=== PATIENT | female | born 1980 | race Caucasian/White ===

== ENCOUNTER → 2019-10-25 07:30 | Outpatient (BNVA) | payer MEDICAID, SELFPAY | PROVIDERS: Family Provider Psychiatry & Neurology Psychiatry; Visit Provider Psychiatry & Neurology Psychiatry | DX: F71 Moderate intellectual disabilities (principal); F42.4 Excoriation (skin-picking) disorder; F42.9 Obsessive-compulsive disorder, unspecified; F33.42 Major depressive disorder, recurrent, in full remission; F33.2 Major depressive disorder, recurrent severe without psychotic features | CPT/HCPCS: 99213 ==

== ENCOUNTER → 2020-04-08 07:58 | Outpatient (BNVA) | payer MEDICAID, SELFPAY | PROVIDERS: Family Provider Psychiatry & Neurology Psychiatry; Visit Provider Psychiatry & Neurology Psychiatry | DX: F33.42 Major depressive disorder, recurrent, in full remission (principal); F42.9 Obsessive-compulsive disorder, unspecified; F42.4 Excoriation (skin-picking) disorder; F71 Moderate intellectual disabilities | CPT/HCPCS: 99213 ==

== ENCOUNTER → 2020-07-29 07:53 | Outpatient (BNVA) | payer MEDICAID, SELFPAY | PROVIDERS: Family Provider Psychiatry & Neurology Psychiatry; Visit Provider Psychiatry & Neurology Psychiatry | DX: F33.42 Major depressive disorder, recurrent, in full remission (principal); F42.9 Obsessive-compulsive disorder, unspecified; F42.4 Excoriation (skin-picking) disorder; F71 Moderate intellectual disabilities | CPT/HCPCS: 99214 ==

== ENCOUNTER → 2020-11-25 07:52 | Outpatient (BNVA) | payer MEDICAID, SELFPAY | PROVIDERS: Family Provider Psychiatry & Neurology Psychiatry; Visit Provider Psychiatry & Neurology Psychiatry | DX: F33.42 Major depressive disorder, recurrent, in full remission (principal); F42.9 Obsessive-compulsive disorder, unspecified; F42.4 Excoriation (skin-picking) disorder; F71 Moderate intellectual disabilities | CPT/HCPCS: 99214 ==

== ENCOUNTER → 2021-04-05 09:58 | Outpatient (BNVA) | payer MEDICAID, SELFPAY | PROVIDERS: Family Provider Psychiatry & Neurology Psychiatry; Visit Provider Psychiatry & Neurology Psychiatry | DX: F42.9 Obsessive-compulsive disorder, unspecified (principal); F33.42 Major depressive disorder, recurrent, in full remission; F42.4 Excoriation (skin-picking) disorder; F71 Moderate intellectual disabilities; Z79.899 Other long term (current) drug therapy; R25.1 Tremor, unspecified | CPT/HCPCS: 99215 ==

== ENCOUNTER → 2021-07-29 07:07 | Outpatient (BNVA) | payer MEDICAID, SELFPAY | PROVIDERS: Family Provider Psychiatry & Neurology Psychiatry; Visit Provider Psychiatry & Neurology Psychiatry | DX: F33.42 Major depressive disorder, recurrent, in full remission (principal); F71 Moderate intellectual disabilities; F42.9 Obsessive-compulsive disorder, unspecified; F42.4 Excoriation (skin-picking) disorder; R25.1 Tremor, unspecified | CPT/HCPCS: 99213 ==

== ENCOUNTER → 2021-10-21 07:23 | Outpatient (BNVA) | payer MEDICAID, SELFPAY | PROVIDERS: Family Provider Psychiatry & Neurology Psychiatry; Visit Provider Psychiatry & Neurology Psychiatry | DX: F42.9 Obsessive-compulsive disorder, unspecified (principal); F33.42 Major depressive disorder, recurrent, in full remission; F71 Moderate intellectual disabilities; F42.4 Excoriation (skin-picking) disorder; Z79.899 Other long term (current) drug therapy; R25.1 Tremor, unspecified | CPT/HCPCS: 99214 ==

== ENCOUNTER → 2023-08-17 13:28 | Outpatient (BNVA) | payer MEDICAID, OTHER, SELFPAY | PROVIDERS: Family Provider Psychiatry & Neurology Psychiatry; Visit Provider Emergency Medicine | DX: M17.11 Unilateral primary osteoarthritis, right knee (principal); M16.11 Unilateral primary osteoarthritis, right hip; M25.561 Pain in right knee; M25.551 Pain in right hip; M54.50 Low back pain, unspecified | CPT/HCPCS: 72100; 73502; 73562 ==